=== PATIENT | female | born 1965 | race Caucasian/White ===

== ENCOUNTER → 2016-05-02 | Outpatient (CLI) | payer OTHER ==
--- NOTE | 2016-05-02 22:12 | MR ---
EXAMINATION TYPE: MR cervical spine wo con DATE OF EXAM: 05/02/2016 7:26 PM COMPARISON: NONE HISTORY: Numbness on right side, Neck pain TECHNIQUE: Multiplanar, multisequence images of the cervical spine were acquired. Findings Normal alignment. Disc spaces are normal for age. The cervical spinal cord has normal signal pattern. There is no evidence of edema. There is a tiny posterior C3-4 disc bulge without any impingement on the spinal canal. The brainstem appears intact. I see no bony destructive process. There is no parasp inal mass. IMPRESSION: Small posterior C3-4 disc bulge. Otherwise normal cervical spine MR scan.
== END | disposition home or self-care (01) ==
LOC: RADMRIMAIN 18:22
PROVIDERS: ATTEND Psychiatry & Neurology Neurology
DX: M50.21 Other cervical disc displacement, high cervical region (principal)
CPT/HCPCS: 72141

== ENCOUNTER → 2016-05-15 | Outpatient (CLI) | payer OTHER ==
[2016-05-15 18:51] LABS: Basophils % (A) 0 %; CH 33.2; CHCM 34.6; Eosinophils % (A) 0 %; HGB 14.3 gm/dL (11.4-16.0); Luc # (Auto) 0.07; Luc % (Auto) 1; Lymphocytes # (A) 1.1 k/uL (1.0-4.8); Lymphocytes % (A) 16 %; MCHC 33.2 g/dL (31.0-37.0); MCV 96.2 fL (80.0-100.0); Mean Platelet Volume 7.5; Monocytes # (A) 0.3 k/uL (0-1.0); Monocytes % (A) 5 %; Neutrophils # (A) 5.4 k/uL (1.3-7.7); Neutrophils % (A) 78 %; RBC 4.47 m/uL (3.80-5.40); RDW 12.1 % (11.5-15.5); WBC 6.9 k/uL (3.8-10.6); WBC (Perox) 7.37
[2016-05-15 19:16] LABS: ALT 24 U/L (9-52); AST 25 U/L (14-36); Alkaline Phosphatase 56 U/L (38-126); Anion Gap 10 mmol/L; Blood Urea Nitrogen 13 mg/dL (7-17); Calcium 10.1 mg/dL (8.4-10.2); Carbon Dioxide 29 mmol/L (22-30); Chloride 100 mmol/L (98-107); Cholesterol 173 mg/dL (<200); Glucose 163 mg/dL (74-99); HDL Cholesterol 107 mg/dL (40-60); Non-African American GFR(MDRD) >60 (>60 ml/min/1.73 sqM); Potassium 4.2 mmol/L (3.5-5.1); Sodium 139 mmol/L (137-145); Total Bilirubin 0.6 mg/dL (0.2-1.3); Total Protein 8.4 g/dL (6.3-8.2); Triglycerides 48 mg/dL (<150)
== END | disposition home or self-care (01) ==
LOC: MMGSC 14:36
PROVIDERS: ATTEND Family Medicine
DX: Z00.00 Encounter for general adult medical examination without abnormal findings (principal); E03.9 Hypothyroidism, unspecified
CPT/HCPCS: 36415; 80053; 80061; 82306; 84439; 84443; 85025

== ENCOUNTER → 2016-05-30 | Outpatient (CLI) | payer OTHER ==
--- NOTE | 2016-05-30 13:01 | XR ---
EXAMINATION TYPE: XR ribs RT DATE OF EXAM: 05/30/2016 12:56 PM CLINICAL HISTORY: Right rib tenderness and pain. TECHNIQUE: A frontal and oblique images of the right-sided ribs are acquired. COMPARISON: None FINDINGS: There are no acute displaced right-sided rib fractures seen. No suspicious lytic, expansile , or sclerotic is clearly identified. Overlying soft tissue is unremarkable. Visualized right lung is clear. IMPRESSION: Unremarkable study.
== END | disposition home or self-care (01) ==
LOC: RADXRMAIN 12:33
PROVIDERS: ATTEND Family Medicine
DX: R07.81 Pleurodynia (principal)

== ENCOUNTER → 2016-06-16 | Outpatient (CLI) | payer OTHER ==
--- NOTE | 2016-06-16 10:34 | US ---
EXAMINATION TYPE: US gallbladder DATE OF EXAM: 06/16/2016 10:17 AM COMPARISON: NONE CLINICAL HISTORY: R07.81 Rib Pain Rt Side. RUQ pain EXAM MEASUREMENTS: Liver Length: 13.4 cm Gallbladder Wall: 0.2 cm CBD: 0.3 cm CHD: 0.1 cm Right Kidney: 9.4 x 5.6 x 3.8 cm Findings: Pancreas: head not well seen due to overlying bowel gas, wnl as visualized Liver: wnl Gallbladder: wnl Evidence for sonographic Gatica's sign: neg CBD: wnl Right Kidney: wnl IMPRESSION: No distinct abnormality appreciated.
== END ==
LOC: RADUSWWP 09:58
PROVIDERS: ATTEND Psychiatry & Neurology Neurology
DX: R07.81 Pleurodynia (principal)
CPT/HCPCS: 76705

== ENCOUNTER → 2016-07-25 | Outpatient (CLI) | payer OTHER ==
--- NOTE | 2016-07-25 12:44 | XR ---
EXAMINATION TYPE: XR bone survey complete DATE OF EXAM: 07/25/2016 12:32 PM COMPARISON: NONE HISTORY: Multiple myeloma. Bony calvarium : 2 views of the bony calvarium demonstrate. No bony lesions. Spine: Two views of the cervical, thoracic and lumbar spines are submitted. Mild degenerative change . PELVIS: Single view of the pelvis demonstrates. No bony lesions UPPER EXTREMITIES: Two views of the upper extremities. No bony lesions LOWER EXTREMITIES: 2 views of the lower extremities. No bony lesions CHEST: Frontal projection of the chest shows the lungs to be clear. Pleural spaces are clear. Heart s ize is normal. IMPRESSION: NO EVIDENCE OF MULTIPLE MYELOMA LESIONS ON THIS STUDY.
== END ==
LOC: RADXRMAIN 11:50
PROVIDERS: ATTEND Internal Medicine Hematology & Oncology
DX: E03.9 Hypothyroidism, unspecified (principal); I10 Essential (primary) hypertension; D47.2 Monoclonal gammopathy
CPT/HCPCS: 77075

== ENCOUNTER → 2016-10-21 | Outpatient (CLI) | payer OTHER ==
--- NOTE | 2016-10-21 16:03 | MR ---
EXAMINATION TYPE: MR cervical spine wo con DATE OF EXAM: 10/21/2016 COMPARISON: 05/02/2016 HISTORY: 51-year-old female Neck Stiffness, Right arm numbness x7 months TECHNIQUE: Multiplanar, multisequence images of the cervical spine were acquired. FINDINGS: No craniocervical junction abnormality, predental space widening, or prevertebral soft tissue swellin g. Normal alignment of the cervical spine though with straightening of the normal cervical lordosis storm g the upper cervical spine. There is mild facet spurring in the mid to lower cervical spine along with minimal ligamentum flavum thickening. Scattered minimal facet degenerative changes also present but within limits for patient's age. At C3-C4, redemonstrated tiny central posterior disc protrusion. This does not contribute any spinal canal or neuroforaminal stenosis. At C6/C7, mild uncovertebral joint spurring may mildly narrow the right neural foramen. Otherwise, no significant spinal canal or foraminal stenosis. Normal course, caliber, and signal intensity of the cervical spinal cord. No prevertebral or paravertebral soft tissue abnormality. IMPRESSION: 1. Scattered minimal age-related facet and uncovertebral joint degenerative change. Stable tiny poste rior disc protrusion at C3-C4. 2. Uncovertebral joint spurring may mildly narrow the right C6-C7 neuroforamen. 3. Otherwise, no canal or foraminal stenosis.
== END | disposition home or self-care (01) ==
LOC: RADMRIMAIN 14:30
PROVIDERS: ATTEND Family Medicine
DX: M99.71 Connective tissue and disc stenosis of intervertebral foramina of cervical region (principal); M50.21 Other cervical disc displacement, high cervical region; M46.02 Spinal enthesopathy, cervical region; R20.2 Paresthesia of skin
CPT/HCPCS: 72141

== ENCOUNTER → 2017-02-18 | Outpatient (CLI) | payer OTHER ==
[2017-02-18 21:15] LABS: Basophils % (A) 1 %; CH 32.6; CHCM 33.3; Eosinophils # (A) 0.1 k/uL (0-0.7); Eosinophils % (A) 2 %; HDW 2.24; HGB 15.4 gm/dL (11.4-16.0); Luc # (Auto) 0.08; Luc % (Auto) 2; Lymphocytes % (A) 24 %; MCH 31.5 pg (25.0-35.0); MCHC 32.1 g/dL (31.0-37.0); MCV 98.3 fL (80.0-100.0); Mean Platelet Volume 7.7; Monocytes # (A) 0.3 k/uL (0-1.0); Monocytes % (A) 8 %; Neutrophils # (A) 2.5 k/uL (1.3-7.7); Neutrophils % (A) 62 %; RBC 4.88 m/uL (3.80-5.40); RDW 11.8 % (11.5-15.5); WBC 4.1 k/uL (3.8-10.6); WBC (Perox) 4.22
[2017-02-18 21:23] LABS: ALT 37 U/L (9-52); AST 31 U/L (14-36); Alkaline Phosphatase 77 U/L (38-126); Anion Gap 12 mmol/L; Blood Urea Nitrogen 10 mg/dL (7-17); Calcium 9.8 mg/dL (8.4-10.2); Carbon Dioxide 28 mmol/L (22-30); Chloride 99 mmol/L (98-107); Cholesterol 200 mg/dL (<200); Glucose 86 mg/dL (74-99); HDL Cholesterol 95 mg/dL (40-60); Non-African American GFR(MDRD) >60 (>60 ml/min/1.73 sqM); Potassium 4.3 mmol/L (3.5-5.1); Sodium 139 mmol/L (137-145); Total Bilirubin 0.8 mg/dL (0.2-1.3); Total Protein 8.5 g/dL (6.3-8.2)
== END | disposition home or self-care (01) ==
LOC: MMGSC 12:57
PROVIDERS: ATTEND Family Medicine
DX: E03.9 Hypothyroidism, unspecified (principal); I10 Essential (primary) hypertension
CPT/HCPCS: 36415; 80053; 80061; 84439; 84443; 85025

== ENCOUNTER → 2017-05-08 | Outpatient (CLI) | payer OTHER ==
[2017-05-08 21:22] LABS: T4, Free (Free Thyroxine) 1.52 ng/dL (0.78-2.19)
== END | disposition home or self-care (01) ==
LOC: MMGSC 11:57
PROVIDERS: ATTEND Family Medicine
DX: E03.9 Hypothyroidism, unspecified (principal)
CPT/HCPCS: 36415; 84439; 84443

== ENCOUNTER → 2017-11-13 | Outpatient (CLI) | payer OTHER ==
--- NOTE | 2017-11-17 09:10 | MM ---
Reason for exam: screening (asymptomatic). Last mammogram was performed 2 years and 4 months ago. Physical Findings: A clinical breast exam by your physician is recommended on an annual basis and results should be correlated with mammographic findings. MG Screening Mammo w CAD Bilateral CC, MLO, and XCCL view(s) were taken. Prior study comparison: July 27, 2015, bilateral MG screening mammo w CAD. The breast tissue is heterogeneously dense. This may lower the sensitivity of mammography. No significant changes when compared with prior studies. ASSESSMENT: Negative, BI-RAD 1 RECOMMENDATION: Routine screening mammogram of both breasts in 1 year.
== END | disposition home or self-care (01) ==
LOC: RADMAMWWP 13:07
PROVIDERS: ATTEND Family Medicine
DX: Z12.31 Encounter for screening mammogram for malignant neoplasm of breast (principal)
CPT/HCPCS: 77067

== ENCOUNTER → 2018-01-12 | Outpatient (CLI) | payer OTHER ==
[2018-01-12 15:27] VITALS: BP 152/75; PULSE 73; TEMP 98.4; BMI 21.9
--- NOTE | 2018-01-12 16:16 | P.HPOB ---
History of Present Illness H&P Date: 01/12/18 Chief Complaint: The patient is here for her routine gynecologic exam. This is a 52-year-old with an LMP of August 2017. The patient is here to establish with this office. It has been about 3 1/2 years since her last pelvic exam. Her menses were regular up until about 1 year ago when they started becoming more unpredictable. They has been about every one to 6 months during the past year. She started having hot flashes in October,. They are mild and occur at night and sometimes during the day. She is otherwise without gynecologic complaints. Review of Systems The patient's weight has been stable over the last year. She denies respiratory , cardiac, or G.I. problems. 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 One VTP at age 18. History of Any Multi-Drug Resistant Organisms: None Reported Past Surgical History: No Surgical Hx Reported Additional Past Surgical History / Comment(s): VTP age 18. 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 - Past Family History Mother Family Medical History: Cancer (Ovarian cancer at age 76) Father Family Medical History: No Reported History, Cancer (Some type of gynecologic cancer.) Medications and Allergies Home Medications Medication Instructions Recorded Confirmed Type ALPRAZolam [Xanax] 0.5 mg PO DAILY PRN 07/16/14 01/12/18 History Levothyroxine Sodium [Synthroid] 50 mcg PO DAILY 07/16/14 01/12/18 History amLODIPine [Norvasc] 5 mg PO DAILY 07/16/14 01/12/18 History B Complex-Vit C-Vit E-Zinc [Z-Bec] PO DAILY 01/12/18 History Cholecalciferol [Vitamin D3] 5,000 PO 01/12/18 History Fish Oil/Dha/Epa [Fish Oil 1,200 PO DAILY 01/12/18 History mg Fish Oil] Multivitamin [Multivitamins Adult PO DAILY 01/12/18 History Gummies] Allergies Allergy/AdvReac Type Severity Reaction Status Date / Time No Known Allergies Allergy Verified 01/12/18 15:23 Exam Vital Signs Temp Pulse BP 01/12/18 15:24 98.4 F 73 152/75 Intake and Output 01/12/18 01/12/18 01/12/18 06:59 14:59 22:59 Other: Weight 56.245 kg Height 5'3", BMI 22.0. This is a well-developed well-nourished white female who is alert and oriented times 3 in no acute distress. HEENT: Within normal limits. NECK: Supple without mass or thyromegaly. CHEST AND LUNGS: Clear to auscultation. HEART: Regular rate and rhythm. BREASTS: Are without mass or discharge. AXILLARY EXAM: Negative for adenopathy. BACK: Negative for CVA tenderness. ABDOMEN: Soft, nontender, without palpable masses. PELVIC EXAM: Normal external genitalia with minimal atrophy. Cervix and vagina appear normal with minimal atrophy. There is no unusual discharge. There is no evidence of prolapse. The uterus is midposition, nongravid size and nontender. There are no palpable adnexal masses or tenderness. RECTAL EXAM: rectovaginal exam is negative for mass or tenderness and is negative for occult blood. EXTREMITIES: Nontender. IMPRESSION: 1. 52-year-old perimenopausal female with one year history of oligomenorrhea and recent mild vasomotor symptoms. 2. Family history of ovarian cancer in her mother. PLAN: 1. Pap smear was performed. 2. Self breast awareness was discussed with the patient. 3. Screening mammogram was done on 11/13/2017 and was negative. This will be repeated in one year. 4. I've recommended yearly pelvic ultrasounds because of her mother's history of ovarian cancer. The orders that was given to the patient for this. 5. Osteoporosis prevention was discussed. 6. Screening colonoscopy was recommended based on her age. She will plan on discussing this with her primary care physician. 7. She will return in one year.
== END | disposition home or self-care (01) ==
LOC: WWCWWP 15:04
PROVIDERS: ATTEND Obstetrics & Gynecology
DX: Z53.9 Procedure and treatment not carried out, unspecified reason (principal)

== ENCOUNTER → 2019-03-23 | Outpatient (CLI) | payer OTHER ==
[2019-03-23 11:48] VITALS: BP 148/89; PULSE 66; RESP 16; TEMP 97.9
--- NOTE | 2019-03-23 12:25 | P.HPOB ---
History of Present Illness H&P Date: 03/23/19 Chief Complaint: The patient is here for her routine gynecologic exam and ma mmogram. This is a 53-year-old with an LMP of 12/22/2018. Menses were regular up until about 2017 when they started becoming less frequent. She had 4 menstrual periods during the past year. She did have some hot flashes earlier in the year, but this has improved. She is otherwise without complaints. Menstrual periods have been pretty normal when she does have them. Review of Systems The patient has gained 12 pounds over the last year. She denies respiratory, cardiac, or G.I. problems. Past Medical History Past Medical History: Hypertension, Thyroid Disorder Additional Past Medical History / Comment(s): Neck disc problems. Hypothyroidism. 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 One VTP at age 18. History of Any Multi-Drug Resistant Organisms: None Reported Past Surgical History: No Surgical Hx Reported Additional Past Surgical History / Comment(s): VTP age 18. Past Psychological History: Anxiety Additional Psychological History / Comment(s): Infrequent situational anxiety. 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 She enjoys camping. - Past Family History Mother Family Medical History: Cancer Additional Family Medical History / Comment(s): Ovarian cancer at age 76. . Father Family Medical History: No Reported History, Cancer Additional Family Medical History / Comment(s): Uncertain cancer type. Medications and Allergies Home Medications Medication Instructions Recorded Confirmed Type ALPRAZolam [Xanax] 0.5 mg PO DAILY PRN 07/16/14 03/23/19 History Levothyroxine Sodium [Synthroid] 50 mcg PO DAILY 07/16/14 03/23/19 History amLODIPine [Norvasc] 5 mg PO DAILY 07/16/14 03/23/19 History B Complex-Vit C-Vit E-Zinc [Z-Bec] 1 tab PO DAILY 01/12/18 03/23/19 History Cholecalciferol [Vitamin D3] 5,000 units PO DAILY 01/12/18 03/23/19 History Fish Oil/Dha/Epa [Fish Oil 1,200 1 tab PO DAILY 01/12/18 03/23/19 History mg Fish Oil] Multivitamin [Multivitamins Adult 1 tab PO DAILY 01/12/18 03/23/19 History Gummies] Vit C/E/Zn/Coppr/Lutein/Zeaxan 1 each PO DAILY 03/23/19 03/23/19 History [Preservision Areds 2 Softgel] Vitamin C/Biotin [Hair, Skin and 1 each PO DAILY 03/23/19 03/23/19 History Nails] Allergies Allergy/AdvReac Type Severity Reaction Status Date / Time No Known Allergies Allergy Verified 03/23/19 11:38 Exam Vital Signs Temp Pulse Resp BP Pulse Ox 03/23/19 11:45 97.9 F 66 16 148/89 100 Intake and Output 03/22/19 03/23/19 03/23/19 22:59 06:59 14:59 Other: Weight 62.142 kg Height 5 feet 3 inches, weight 137 pounds, BMI 24.3. This is a well-developed well-nourished white female who is alert and oriented times 3 in no acute distress. HEENT: Within normal limits. NECK: Supple without mass or thyromegaly. CHEST AND LUNGS: Clear to auscultation. HEART: Regular rate and rhythm. BREASTS: Are without mass or discharge. AXILLARY EXAM: Negative for adenopathy. BACK: Negative for CVA tenderness. ABDOMEN: Soft, nontender, without palpable masses. PELVIC EXAM: Normal external genitalia. Cervix and vagina appear normal with minimal atrophy. There is no unusual discharge. There is no evidence of prolapse. The uterus is midposition, nongravid size and nontender. There are no palpable adnexal masses or tenderness. RECTAL EXAM: Rectovaginal exam is negative for mass or tenderness and is negative for occult blood. EXTREMITIES: Nontender. IMPRESSION: 1. 53-year-old perimenopausal female with oligomenorrhea and intermittent mild vasomotor symptoms. 2. Family history of ovarian cancer in her mother. 3. Normal gynecologic exam. PLAN: 1. Pap smear was deferred since she had a normal one on 01/12/2018. 2. Self breast awareness was discussed with the patient. 3. Screening mammogram will be done today. 4. Pelvic ultrasound was recommended and the order slip was given to the patient for this. I have recommended yearly pelvic ultrasounds because of her family's history. 5. Osteoporosis prevention was discussed. I have stressed the importance of adequate calcium, vitamin D and regular exercise. Recommended amounts of calcium and vitamin D were also discussed. 6. She was advised to return in one year for her annual well woman exam.
--- NOTE | 2019-03-25 11:34 | MM ---
Reason for exam: screening (asymptomatic). Last mammogram was performed 1 year and 4 months ago. Physical Findings: A clinical breast exam by your physician is recommended on an annual basis and results should be correlated with mammographic findings. MG Screening Mammo w CAD Bilateral CC and MLO view(s) were taken. Prior study comparison: November 13, 2017, bilateral MG screening mammo w CAD. July 27, 2015, bilateral MG screening mammo w CAD. The breast tissue is heterogeneously dense. This may lower the sensitivity of mammography. No significant changes when compared with prior studies. ASSESSMENT: Benign, BI-RAD 2 RECOMMENDATION: Routine screening mammogram of both breasts in 1 year.
== END | disposition home or self-care (01) ==
LOC: WWCWWP 11:00
PROVIDERS: ATTEND Obstetrics & Gynecology
DX: Z12.31 Encounter for screening mammogram for malignant neoplasm of breast (principal)
CPT/HCPCS: 77067

== ENCOUNTER → 2020-07-31 | Outpatient (CLI) | payer OTHER ==
[2020-07-31 14:14] VITALS: BP 147/84; PULSE 64; RESP 16; TEMP 98
--- NOTE | 2020-07-31 15:15 | P.HPOB ---
History of Present Illness H&P Date: 07/31/20 Chief Complaint: The patient is here for her routine gynecologic exam and ma mmogram. This is a 55-year-old with an LMP of December 2018. The patient is without gynecologic complaints and denies any postmenopausal bleeding. I have recommended yearly pelvic ultrasounds because of her mother's history of ovarian cancer. She did not do this last year because of the Covid pandemic. Review of Systems The patient has gained 9 pounds over the last year. She denies respiratory, cardiac, or G.I. problems. Past Medical History Past Medical History: Hypertension, Thyroid Disorder Additional Past Medical History / Comment(s): Neck disc problems. Hypothyroidism. 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 One VTP at age 18. History of Any Multi-Drug Resistant Organisms: None Reported Past Surgical History: No Surgical Hx Reported Additional Past Surgical History / Comment(s): VTP age 18. Past Psychological History: Anxiety Additional Psychological History / Comment(s): Infrequent situational anxiety. 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 She enjoys camping. - Past Family History Mother Family Medical History: Cancer Additional Family Medical History / Comment(s): Ovarian cancer at age 76. . Father Family Medical History: No Reported History, Cancer Additional Family Medical History / Comment(s): Uncertain cancer type. Medications and Allergies Home Medications Medication Instructions Recorded Confirmed Type ALPRAZolam [Xanax] 0.5 mg PO DAILY PRN 07/16/14 07/31/20 History Levothyroxine Sodium [Synthroid] 50 mcg PO DAILY 07/16/14 07/31/20 History amLODIPine [Norvasc] 5 mg PO DAILY 07/16/14 07/31/20 History B Complex-Vit C-Vit E-Zinc [Z-Bec] 1 tab PO DAILY 01/12/18 07/31/20 History Cholecalciferol [Vitamin D3] 5,000 units PO DAILY 01/12/18 07/31/20 History Fish Oil/Dha/Epa [Fish Oil 1,200 1 tab PO DAILY 01/12/18 07/31/20 History mg Fish Oil] Multivitamin [Multivitamins Adult 1 tab PO DAILY 01/12/18 07/31/20 History Gummies] Vit C/E/Zn/Coppr/Lutein/Zeaxan 1 each PO DAILY 03/23/19 07/31/20 History [Preservision Areds 2 Softgel] Vitamin C/Biotin [Hair, Skin and 1 each PO DAILY 03/23/19 07/31/20 History Nails] Allergies Allergy/AdvReac Type Severity Reaction Status Date / Time No Known Allergies Allergy Verified 07/31/20 14:08 Exam Vital Signs Temp Pulse Resp BP Pulse Ox 07/31/20 14:10 98.0 F 64 16 147/84 99 Intake and Output 07/31/20 07/31/20 07/31/20 06:59 14:59 22:59 Other: Weight 66.224 kg Height 5 feet 4 inches, weight 146 pounds, BMI 25.1. This is a well-developed well-nourished white female who is alert and oriented times 3 in no acute distress. HEENT: Within normal limits. NECK: Supple without mass or thyromegaly. CHEST AND LUNGS: Clear to auscultation. HEART: Regular rate and rhythm. BREASTS: Are without mass or discharge. AXILLARY EXAM: Negative for adenopathy. BACK: Negative for CVA tenderness. ABDOMEN: Soft, nontender, without palpable masses. PELVIC EXAM: Normal external genitalia with mild atrophy. Cervix and vagina appear normal with mild atrophy. There is no unusual discharge. There is no evidence of prolapse. The uterus is midposition, nongravid size and nontender. There are no palpable adnexal masses or tenderness. RECTAL EXAM: Rectovaginal exam is negative for mass or tenderness and is negative for occult blood. EXTREMITIES: Nontender. IMPRESSION: 1. 55-year-old menopausal female with normal gynecologic exam. 2. Family history of ovarian cancer in her mother. PLAN: 1. Pap smear cotest was performed. 2. Self breast awareness was discussed with the patient. 3. Screening mammogram will be done today. 4. Pelvic ultrasound was recommended because of her family history of ovarian cancer in her mother. The order slip was given to the patient for this. 5. Osteoporosis prevention was discussed. I have stressed the importance of adequate calcium, vitamin D and regular exercise. Recommended amounts of calcium and vitamin D were also discussed. 6. She was advised to return in one year for her annual well woman exam.
--- NOTE | 2020-08-01 09:31 | MM ---
Reason for exam: screening (asymptomatic). Last mammogram was performed 1 year and 4 months ago. Physical Findings: A clinical breast exam by your physician is recommended on an annual basis and results should be correlated with mammographic findings. MG Screening Mammo w CAD Bilateral CC and MLO view(s) were taken. Prior study comparison: March 23, 2019, bilateral MG screening mammo w CAD. November 13, 2017, bilateral MG screening mammo w CAD. The breast tissue is heterogeneously dense. This may lower the sensitivity of mammography. There is no discrete abnormality. No significant changes when compared with prior studies. ASSESSMENT: Negative, BI-RAD 1 RECOMMENDATION: Routine screening mammogram of both breasts in 1 year.
== END | disposition home or self-care (01) ==
LOC: WWCWWP 13:55
PROVIDERS: ATTEND Obstetrics & Gynecology
DX: Z12.31 Encounter for screening mammogram for malignant neoplasm of breast (principal)
CPT/HCPCS: 77067

== ENCOUNTER → 2021-06-28 | Outpatient (CLI) | payer OTHER ==
--- NOTE | 2021-06-28 14:56 | US ---
EXAMINATION TYPE: US pelvis complete transvag DATE OF EXAM: 06/28/2021 COMPARISON: NONE CLINICAL HISTORY: Z80.41 Family history of ovarian CA. TECHNIQUE: Transvaginal (TV) and Transabdominal (TA) . Transabdominal sonographic images of the pel vis were acquired. Transvaginal sonographic images were medically necessary to better assess the fol lowing anatomy: Ovaries Date of LMP: Postmenopausal EXAM MEASUREMENTS: Uterus: 5.6 x 2.7 x 3.7 cm Endometrial Stripe: 0.1 cm Right Ovary: Obscured by overlying bowel gas Left Ovary: Obscured by overlying bowel gas 1. Uterus: Anteverted wnl 2. Endometrium: wnl 3. Right Ovary: Obscured by overlying bowel gas and or atrophy 4. Left Ovary: Obscured by overlying bowel gas and or atrophy 5. Bilateral Adnexa: wnl 6. Posterior cul-de-sac: wnl Anteverted uterus. Poor visualization of endometrial stripe on transabdominal investigation better se en transvaginal study. No free fluid in pelvis. Neither ovary clearly seen. No adnexal masses noted on images saved. IMPRESSION: No suspicious ovarian or adnexal masses identified on images saved.
== END | disposition home or self-care (01) ==
LOC: RADUSWWP 14:07
PROVIDERS: ATTEND Obstetrics & Gynecology
DX: Z09 Encounter for follow-up examination after completed treatment for conditions other than malignant neoplasm (principal); Z80.41 Family history of malignant neoplasm of ovary
CPT/HCPCS: 76830; 76856

== ENCOUNTER → 2022-09-05 | Outpatient (CLI) | payer OTHER ==
--- NOTE | 2022-09-05 11:29 | US ---
EXAMINATION TYPE: US pelvis complete transvag DATE OF EXAM: 09/05/2022 COMPARISON: Prior ultrasound one year ago CLINICAL INDICATION: Female, 57 years old with history of Z80.41 OVARIAN CA; family hx of ov ca TECHNIQUE: Transvaginal (TV) and Transabdominal (TA) . Transabdominal sonographic images of the pel vis were acquired. Transvaginal sonographic images were medically necessary to better assess the fol lowing anatomy: ovaries. EXAM MEASUREMENTS: Uterus: 5.9 x 2.3 x 3.8 cm Endometrial Stripe: .3 cm Right Ovary: 1.7 x 1.1 x 1.4 cm 1. Uterus: Anteverted wnl 2. Endometrium: wnl 3. Right Ovary: echogenic area seen measuring 2 mm. 4. Left Ovary: Obscured by overlying bowel gas 5. Bilateral Adnexa: wnl 6. Posterior cul-de-sac: wnl Small right ovary correlates with patient's postmenopausal age and has incidental 1 to 2 mm calcifica tion. IMPRESSION: No suspicious adnexal masses on today's study.
== END | disposition home or self-care (01) ==
LOC: RADUSWWP 10:05
PROVIDERS: ATTEND Obstetrics & Gynecology
DX: Z80.41 Family history of malignant neoplasm of ovary (principal)
CPT/HCPCS: 76830; 76856

== ENCOUNTER → 2023-10-28 | Outpatient (CLI) | payer OTHER ==
[2023-10-28 11:40] VITALS: BP 151/85; PULSE 74; RESP 16; TEMP 98.4
--- NOTE | 2023-10-28 12:17 | P.HPOB ---
History of Present Illness H&P Date: 10/28/23 Chief Complaint: The patient is here for her routine gynecologic exam and ma mmogram. This is a 58-year-old -0-1-0 with an LMP of 2019. The patient is without gynecologic complaints and denies any postmenopausal bleeding. Review of Systems The patient's weight has been stable over the last year. She denies respiratory, cardiac, or G.I. problems. Past Medical History Past Medical History: Hypertension, Thyroid Disorder Additional Past Medical History / Comment(s): Neck disc problems. Hypothyroidism. 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 One VTP at age 18. History of Any Multi-Drug Resistant Organisms: None Reported Past Surgical History: No Surgical Hx Reported Additional Past Surgical History / Comment(s): VTP age 18. Past Psychological History: Anxiety Additional Psychological History / Comment(s): Infrequent situational anxiety. 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 She enjoys camping. - Past Family History Mother Family Medical History: Cancer Additional Family Medical History / Comment(s): Ovarian cancer at age 76. . Father Family Medical History: No Reported History, Cancer Additional Family Medical History / Comment(s): Uncertain cancer type. Medications and Allergies Home Medications Medication Instructions Recorded Confirmed Type Levothyroxine Sodium [Synthroid] 50 mcg PO DAILY 07/16/14 05/20/22 History amLODIPine [Norvasc] 5 mg PO DAILY 07/16/14 05/20/22 History B Complex-Vit C-Vit E-Zinc [Z-Bec] 1 tab PO DAILY 01/12/18 05/20/22 History Cholecalciferol [Vitamin D3] 5,000 units PO DAILY 01/12/18 05/20/22 History Fish Oil/Dha/Epa [Fish Oil 1,200 1 tab PO DAILY 01/12/18 05/20/22 History mg Fish Oil] Multivitamin [Multivitamins Adult 1 tab PO DAILY 01/12/18 05/20/22 History Gummies] Vit C/E/Zn/Coppr/Lutein/Zeaxan 1 each PO DAILY 03/23/19 05/20/22 History [Preservision Areds 2 Softgel] Vitamin C/Biotin [Hair, Skin and 1 each PO DAILY 03/23/19 05/20/22 History Nails] Allergies Allergy/AdvReac Type Severity Reaction Status Date / Time No Known Allergies Allergy Verified 10/28/23 11:38 Exam Vital Signs Temp Pulse Resp BP Pulse Ox 10/28/23 11:39 98.4 F 74 16 151/85 99 Intake and Output 10/27/23 10/28/23 10/28/23 22:59 06:59 14:59 Other: Weight 62.596 kg Height 5 feet 3 inches, weight 138 pounds, BMI 24.4 This is a well-developed well-nourished white female who is alert and oriented times 3 in no acute distress. HEENT: Within normal limits. NECK: Supple without mass or thyromegaly. CHEST AND LUNGS: Clear to auscultation. HEART: Regular rate and rhythm. BREASTS: Are without mass or discharge. AXILLARY EXAM: Negative for adenopathy. BACK: Negative for CVA tenderness. ABDOMEN: Soft, nontender, without palpable masses. PELVIC EXAM: Normal external genitalia with mild atrophy. Cervix and vagina appear normal with mild to moderate atrophy. There is no unusual discharge. There is no evidence of prolapse. The uterus is midposition, nongravid size and nontender. There are no palpable adnexal masses or tenderness. RECTAL EXAM: Rectovaginal exam is negative for mass or tenderness and is negative for occult blood. EXTREMITIES: Nontender. IMPRESSION: 1. 58-year-old menopausal female with normal gynecologic exam. 2. Family history of ovarian cancer in her mother. 3. Elevated blood pressure with history of chronic hypertension on blood pressure medication. PLAN: 1. Pap smear was deferred since she had a negative Pap smear cotest on 2020. 2. Self breast awareness was discussed with the patient. We have also discussed symptoms associated with inflammatory breast cancer. 3. Screening mammogram was done today. 4. Osteoporosis prevention was discussed. I have stressed the importance of adequate calcium, vitamin D and regular exercise. Recommended amounts of calcium and vitamin D were also discussed. We will plan on doing bone density testing in 1 year. 5. Because of her family history of ovarian cancer, I have recommended a pelvic ultrasound. The order slip was given to the patient for this. 6. She was advised to return in one year for her annual well woman exam.
== END ==
LOC: WWCWWP 11:15
PROVIDERS: ATTEND Obstetrics & Gynecology
DX: Z12.31 Encounter for screening mammogram for malignant neoplasm of breast (principal); I10 Essential (primary) hypertension; Z78.0 Asymptomatic menopausal state; Z80.41 Family history of malignant neoplasm of ovary; Z79.899 Other long term (current) drug therapy
CPT/HCPCS: 77067

== ENCOUNTER → 2024-04-22 | Outpatient (CLI) | payer OTHER ==
--- NOTE | 2024-04-22 15:10 | US ---
EXAMINATION TYPE: US pelvis complete transvag DATE OF EXAM: 04/22/2024 COMPARISON: US(09/05/2022) CLINICAL INDICATION: Female, 58 years old with history of [id number] FAMILY HISTORY OF MALIGNANT NEOPLASM OF OVARY; f/u TECHNIQUE: . Transabdominal grayscale sonographic images of the pelvis were acquired. Transvaginal sonographic im ages were medically necessary to better assess the following anatomy: Doppler imaging: Not performed. FINDINGS: EXAM MEASUREMENTS: Uterus: 6.1x2.3x3.2 cm Endometrial Stripe: 0.2 cm Right Ovary: 2.4x0.9x0.9 cm Left Ovary: 3.1x0.8x0.8 cm slightly limited exam due to pt unable to completely empty bladder 1. Uterus: Anteverted wnl Cx: ?Calcification seen within cx: 0.3cm 2. Endometrium: wnl 3. Right Ovary: ?calcifications within rt ovary, as seen as prior 4. Left Ovary: ?calcifications seen within lt ovary 5. Bilateral Adnexa: wnl 6. Posterior cul-de-sac: wnl IMPRESSION: No suspicious new solid or cystic ovarian or adnexal mass. Small size ovaries correlate w ith patient's postmenopausal age. [facility], , 04/22/2024 3:08 PM
== END | disposition home or self-care (01) ==
LOC: RADUSWWP 14:03
PROVIDERS: ATTEND Obstetrics & Gynecology
DX: Z80.41 Family history of malignant neoplasm of ovary (principal)
CPT/HCPCS: 76830; 76856